=== PATIENT | male | born 1965 | race Caucasian/White ===

== ENCOUNTER 2016-09-30 11:34 | Emergency (ER) | payer BC ==
[2016-09-30 11:38] VITALS: BMI 27.2
--- NOTE | 2016-09-30 12:01 | DR.GENAD ---
HPI - PCP Primary Care Physician: MORAIMA MUELLER - HPI Comment HPI Comment: PATIENT SAID SYMTOMS PERSISTENT. HISTORY HYPERTENSION. TOOK HIS MEDICATION. - Complaint/Symptoms Chief Complaint Doctors Comments: ELEVATED BP, LEFT ARM NUMBNESS, HEADACHE TIMES FEW HOURS. Chief Complaint:: PATIENT STATED THAT HE SEEN MORAIMA MUELLER AT [facility] AND HIS BLOOD PRESSURE WAS HIGH AND ARM TINGLING - Nurses notes reviewed Nurses Notes Review: Yes - Source History Provided: Patient - Mode of Arrival Mode of Arrival: Ambulatory - Timing Onset of Chief Complaint: 09/30/16 Came on: Gradually - Duration Duration: Constant Duration: Days - Severity Severity: Moderate PMH - PMH Past Medical History: Yes Past Medical History: Depression, Hypertension Past Surgical History: No - Family History History of Family Medical Conditions: Yes Family Medical History: Cancer, Hypertension - Social History Does patient currently use any type of tobacco product: Yes Have you used tobacco products in the last 12 months: Yes Type of Tobacco Use: Cigarettes Does any household member use tobacco: No Alcohol Use: Occasionally Do you use any recreational Drugs:: No Lives With: Family Lives Where: Home - infectious screening In the last 2 months have you had wt loss of >10#?: NO Have you had fever, night sweats or hemotysis?: No Have you traveled outside the country in the last 6 months?: No Isolation: Standard ROS - Review of Systems Constitutional: No Symptoms Reported Eyes: No Symptoms Reported ENTM: No Symptoms Reported Respiratoy: No Symptoms Reported Cardiovascular: No Symptoms Reported Gastrointestinal/Abdominal: No Symptoms Reported Genitourinary: No Symptoms Reported Neurological: Headache, Numbness (LT SIDED) Musculoskeletal: No Symptoms Reported Integumentary: No Symptoms Reported Hematologic/Lymphatic: No Symptoms Reported Endocrine: No Symptoms Reported All Other Systems: Reviewed and Negative PE - Vital Signs Vitals: Temperature 98.1 F Pulse Rate [Left Brachial] 57 Pulse Rate 66 Respiratory Rate 20 Blood Pressure [Right Arm] 132/88 Blood Pressure 168/113 O2 Sat by Pulse Oximetry 96 - General Limitations: No Limitations General Appearance: Alert - Head Head Exam: Normal Inspection - Eyes Eye exam: Normal Appearance - ENT ENT Exam: Normal External Ear Exam External Ear Exam: Normal External Inspection TM/Canal Exam: Bilateral Normal Mouth Exam: Normal Inspection Throat Exam: Normal Inspection - Neck Neck Exam: Trachea Midline. negative: Tenderness, Meningismus, Lymphadenopathy - Chest Chest Inspection: Normal Inspection - Respiratory Respiratory Exam: Normal Lung Sounds Bilat Respiratory Exam: Bilateral Clear to Auscultation - Cardiovascular Cardiovascular Exam: Regular Rate, Normal Rhythm, Normal Heart Sounds - Abdominal Exam Abdominal Exam: Normal Bowel Sounds, Soft. negative: Tenderness - Extremities Extremities Exam: Normal Inspection - Back Back Exam: Normal Inspection - Neurologic Neurological Exam: Alert, Oriented X3, CN II-XII Intact, Normal Gait, Reflexes Normal. negative: Motor Sensory Deficit - Psychiatric Psychiatric Exam: Normal Affect, Normal Mood - Skin Skin Exam: Normal Color [facility] - Additional Information Additional Information Obtained From: Family - Differential Diagnosis Differential Diagnosis: HYPERTENSION, LT SIDED UMBNESS, TIA, CVA, Course - Treatment Treatment: SEE ORDERS. - Education/Counseling Education/Counseling: Patient, Family, Education Educated On: Treatment, Diagnosis, Needs for Follow Up ROR - Labs Reviewed Laboratory Results Reviewed?: Yes Result Diagrams: 09/30/16 13:00 09/30/16 13:00 Laboratory: WBC 5.4 X10^3/uL (3.6-10.0) 09/30/16 13:00 RBC 4.88 X10^6/uL (4.7-6.0) 09/30/16 13:00 Hgb 15.2 g/dL (13.5-18.0) 09/30/16 13:00 Hct 43.6 % (42.0-54.0) 09/30/16 13:00 MCV 89.3 fL (80.0-100.0) 09/30/16 13:00 MCH 31.1 pg (27.0-34.0) 09/30/16 13:00 MCHC 34.8 g/dL (33.0-35.0) 09/30/16 13:00 RDW 13.5 % (11.6-16.5) 09/30/16 13:00 Plt Count 147 X10^3/uL (150.0-450.0) L 09/30/16 13:00 MPV 7.3 fL (7.4-11.0) L 09/30/16 13:00 Neut % 60.8 % (42.0-75.0) 09/30/16 13:00 Lymph % 28.0 % (21.0-51.0) 09/30/16 13:00 Gallia % 9.0 % (0.0-13.0) 09/30/16 13:00 Eos % 1.7 % (0.9-2.9) 09/30/16 13:00 Baso % 0.5 % (0.2-1.0) 09/30/16 13:00 Neut # 3.3 x10^3/uL (2.2-4.8) 09/30/16 13:00 Lymph # 1.5 X10^3/uL (1.3-2.9) 09/30/16 13:00 Gallia # 0.5 x10^3/uL (0.3-0.8) 09/30/16 13:00 Eos # 0.1 x10^3/uL (0.0-0.2) 09/30/16 13:00 Baso # 0.0 X10^3/uL (0.0-0.1) 09/30/16 13:00 Absolute Nucleated RBC 0.0 /100WBC 09/30/16 13:00 Sodium 140 mmol/L (136-145) 09/30/16 13:00 Corrected Sodium TNP 09/30/16 13:00 Potassium 3.7 mmol/L (3.5-5.1) 09/30/16 13:00 Chloride 105 mmol/L (98-107) 09/30/16 13:00 Carbon Dioxide 27.4 mmol/L (21-32) 09/30/16 13:00 BUN 11 mg/dL (7-18) 09/30/16 13:00 Creatinine 0.97 mg/dL (0.70-1.30) 09/30/16 13:00 Est GFR (MDRD) Af Amer > 60 (>60) 09/30/16 13:00 Est GFR (MDRD) Non-Af > 60 (>60) 09/30/16 13:00 Glucose 94 mg/dL (65-99) 09/30/16 13:00 Calcium 8.2 mg/dL (8.5-10.1) L 09/30/16 13:00 Corrected Calcium TNP 09/30/16 13:00 Total Bilirubin 0.70 mg/dL (0.2-1.0) 09/30/16 13:00 AST 17 Units/L (15-37) 09/30/16 13:00 ALT 34 Units/L (12-78) 09/30/16 13:00 Alkaline Phosphatase 68 Units/L (46-116) 09/30/16 13:00 Creatine Kinase 93 Units/L (39-308) 09/30/16 13:00 CK-MB (CK-2) < 1.0 ng/mL (0-4.0) 09/30/16 13:00 CK/CKMB % Calc 1.1 % (<4) 09/30/16 13:00 Troponin I < 0.02 ng/mL (0-1.5) 09/30/16 13:00 Total Protein 6.8 g/dL (6.4-8.2) 09/30/16 13:00 Albumin 3.5 g/dL (3.4-5.0) 09/30/16 13:00 Globulin 3.3 g/dL (2.5-4.5) 09/30/16 13:00 Albumin/Globulin Ratio 1.1 Ratio (1.1-2.1) 09/30/16 13:00 - XRAY XRAY Interpreted by: Radiologist XRAY Findings: REPORT DISCUSS WITH PATIENT. - EKG Rhythm: SB (EKG NOTED.) - Diagnosis Discharge Problem: Hypertension, Numbness and tingling of left upper and lower extremity - Discharge Plan Disposition: 01 HOME, SELF-CARE Condition: Stable Prescriptions: Clonidine HCl 0.1 mg PO BID #60 tablet - Follow ups/Referrals Follow ups/Referrals: Moraima Mueller [Primary Care Provider] - 3 days - Instructions Instructions: Hypertension Additional Instructions: RETURN TO ED IF WORSE.
[2016-09-30] MEDS ORDERED: CATAPRES TAB 0.2 MG PO ONE (12:18)
[2016-09-30] MEDS ORDERED: CATAPRES TAB 0.2 MG ONE (12:20)
--- NOTE | 2016-09-30 12:54 | CT ---
CT brain without contrast Indication: left-sided numbness Comparison: 01/09/2013 Technique: Multiple axial images of the brain were obtained from the skull base to the vertex without administr ation of IV contrast. Coronal and sagittal images were also provided. Radiation dose reduction techniques were performed utilizing adjustment for MA/kVP based on patient body size. Findings: No acute intraparenchymal hemorrhage or mass can be identified. No extra-axial fluid collections ar e seen. No alteration in the attenuation of the brain parenchyma can be identified to suggest acute or subacute ischemic change. The ventricular system is symmetric and nondilated. The extracranial structures are grossly unremarkable. IMPRESSION: 1. No acute intracranial process is identified. Reported By:
--- NOTE | 2016-09-30 12:55 | RAD ---
AP Chest Indication: Chest pain with elevated blood pressure Comparison: 05/20/2015 Findings: The trachea is midline. The cardiac silhouette is unremarkable. The lungs are clear without focal infiltrate or effusion. The bony thorax is unremarkable. IMPRESSION: 1. No acute cardiopulmonary abnormality. Reported By:
[2016-09-30 13:19] LABS: BASOPHILS % (AUTO) 0.5 % (0.2-1.0); EOSINOPHILS # (AUTO) 0.1 x10^3/uL (0.0-0.2); EOSINOPHILS % (AUTO) 1.7 % (0.9-2.9); HEMATOCRIT 43.6 % (42.0-54.0); HEMOGLOBIN 15.2 g/dL (13.5-18.0); LYMPHOCYTES # (AUTO) 1.5 X10^3/uL (1.3-2.9); MEAN CORPUSCULAR HEMOGLOBIN 31.1 pg (27.0-34.0); MEAN CORPUSCULAR HGB CONC 34.8 g/dL (33.0-35.0); MEAN CORPUSCULAR VOLUME 89.3 fL (80.0-100.0); MEAN PLATELET VOLUME 7.3 fL (7.4-11.0); MONOCYTES # (AUTO) 0.5 x10^3/uL (0.3-0.8); NEUTROPHILS # (AUTO) 3.3 x10^3/uL (2.2-4.8); NEUTROPHILS % (AUTO) 60.8 % (42.0-75.0); PLATELET COUNT 147 X10^3/uL (150.0-450.0); RED BLOOD COUNT 4.88 X10^6/uL (4.7-6.0); RED CELL DISTRIBUTION WIDTH 13.5 % (11.6-16.5); WHITE BLOOD COUNT 5.4 X10^3/uL (3.6-10.0)
[2016-09-30 13:39] LABS: BLOOD UREA NITROGEN 11 mg/dL (7-18); CALCIUM 8.2 mg/dL (8.5-10.1); CARBON DIOXIDE 27.4 mmol/L (21-32); CHLORIDE 105 mmol/L (98-107); CREATININE 0.97 mg/dL (0.70-1.30); GLUCOSE 94 mg/dL (65-99); SODIUM 140 mmol/L (136-145); TROPONIN I < 0.02 ng/mL (0-1.5); eGFR BLACK RACES > 60 (>60); eGFR NON BLACK RACES > 60 (>60)
[2016-09-30 13:43] LABS: ALANINE AMINOTRANSFERASE 34 Units/L (12-78); ALBUMIN 3.5 g/dL (3.4-5.0); ALKALINE PHOSPHATASE 68 Units/L (46-116); ASPARTATE AMINO TRANSFERASE 17 Units/L (15-37); CKMB % 1.1 % (<4); CREATINE KINASE 93 Units/L (39-308); CREATINE KINASE MB < 1.0 ng/mL (0-4.0); TOTAL PROTEIN 6.8 g/dL (6.4-8.2)
[2016-09-30 14:29] VITALS: BP 132/88
== END 2016-09-30 14:29 | disposition home or self-care (01) | DRG 305 ==
LOC: ER 11:44
DX: I10 Essential (primary) hypertension (principal); R20.2 Paresthesia of skin
CPT/HCPCS: 36415; 70450; 71010; 80053; 82550; 82553; 84484; 85025; 93005; 93010; 99282; 99283